=== PATIENT | male | born 1965 | race Caucasian/White ===

== ENCOUNTER 2021-02-05 21:18 | Observation (INO) | payer BC, OTHER ==
[2021-02-05] MEDS ORDERED: MORPHINE 4 MG/ML SYR ONE (22:03)
[2021-02-05] MEDS ORDERED: ONDANSETRON 4 MG/2 ML VIAL ONE (22:03)
[2021-02-05 22:16] LABS: Absolute Lymphocytes (CBC) 1.9 K/uL (0.7-4.9); Hematocrit 44.5 % (39.6-49.0); Lymphocytes % 25.1 % (15.3-44.8); MPV 9.3 fL (7.6-11.3); RBC Red Blood Cell Count 5.29 M/uL (4.33-5.43)
[2021-02-05 22:18] LABS: ALT/SGPT 22 U/L (12-78); AST/SGOT 18 U/L (15-37); Albumin 3.8 g/dL (3.4-5.0); Alkaline Phosphatase 91 U/L (45-117); BUN Blood Urea Nitrogen 21 mg/dL (7-18); Bicarbonate 24 mmol/L (21-32); Bilirubin Direct < 0.1 mg/dL (0-0.2); Bilirubin Total 0.5 mg/dL (0.2-1.0); Glucose Level 216 mg/dL (74-106); Magnesium 1.8 mg/dL (1.8-2.4); NT PRO-BNP 15 pg/mL (<125); Potassium 3.8 mmol/L (3.5-5.1); Protein, Total 7.6 g/dL (6.4-8.2); Sodium Level 139 mmol/L (136-145); Troponin (Emerg Dept Use Only) < 0.02 ng/mL (0.0-0.045)
[2021-02-05 22:27] LABS: Protime INR 0.88
[2021-02-05 23:37] LABS: SARS-COV-2 RT PCR NEGATIVE (NEGATIVE)
--- NOTE | 2021-02-06 00:48 | P.HP ---
Certification for Inpatient Patient admitted to: Observation With expected LOS: <2 Midnights Patient will require the following post-hospital care: None Practitioner: I am a practitioner with admitting privileges, knowledge of patient current condition, hospital course, and medical plan of care. Services: Services provided to patient in accordance with Admission requirements found in Title 42 Section 412.3 of the Code of Federal Regulations Patient History Date of Service: 02/06/21 Primary Care Provider: Dr. Herrera Reason for admission: Chest pain History of Present Illness: 55-year-old male with history of diabetes mellitus type 2, hypothyroidism presented to the emergency department for chest pain. Patient reports that he has had chest pain intermittently since Friday the . Patient was evaluated at another hospital and admitted under observation, had blood work and was discharged with anxiety medication. Patient reports worsening of pain, pain is described as sharp substernal radiating to right arm and jaw with associated nausea. Patient was evaluated in the emergency department labs were significant for glucose 216. CT aorta negative for dissection or pulmonary embolism initial troponin negative EKG unremarkable, ED provider wishes to admit in observation for chest pain. 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 moist/pink, EOMI, Sclerae nonicteric Neck: Supple, 2+ carotid pulse no bruit, No LAD, Without JVD or thyroid abnormality Respiratory: Clear to auscultation bilaterally, Normal air movement Cardiovascular: Regular rate/rhythm, Normal S1 S2 Gastrointestinal: Normal bowel sounds, No tenderness Musculoskeletal: No tenderness Integumentary: No rashes Neurological: Normal gait, Normal speech, Normal strength at 5/5 x4 extr, Normal tone, Normal affect Lymphatics: No axilla or inguinal lymphadenopathy - Studies Laboratory Data (last 24 hrs) 10/25/21 21:40: PT 10.1, INR 0.88 02/05/21 21:40: WBC 7.50, Hgb 15.1, Hct 44.5, Plt Count 214 02/05/21 21:40: Sodium 139, Potassium 3.8, BUN 21 H, Creatinine 1.08, Glucose 216 H, Magnesium 1.8, Total Bilirubin 0.5, AST 18, ALT 22, Alkaline Phosphatase 91 Assessment and Plan - Plan Assessment: Chest pain rule out ACS Diabetes mellitus type 2 with hyperglycemia Hypothyroidism Plan: Chest pain rule out ACS: Trend troponin, monitor on telemetry, cardiology consult in place. Daily aspirin, statin, beta-benjy therapy. Patient reports less stress test approximately 10 years ago, has not had additional work-up. Patient did report that he tested positive for Covid approximately 3 weeks ago. Appreciate further input from cardiology. Diabetes mellitus type 2 with hyperglycemia: [facility] Accu-Chek, sliding scale insulin. Hypothyroidism: Obtain and continue home medication. DVT PPX: Lovenox Code status: Full Discharge Plan: Home Plan to discharge in: 24 Hours - Advance Directives Does patient have a Living Will: No Does patient have a Durable POA for Healthcare: No - Code Status/Comfort Care Code Status Assessed: Yes (Full code) Critical Care: No Time Spent Managing Pts Care (In Minutes): 55
[2021-02-06] MEDS ORDERED: FENTANYL CITR 100 MCG/2 ML ONE (01:15)
[2021-02-06] MEDS ORDERED: NA CHLORIDE 0.9% 500 ML ONE (01:16)
[2021-02-06] MEDS ORDERED: LIDOCAINE VISCOUS 2% SOLN 15 ML UDC ONE (01:16)
[2021-02-06] MEDS ORDERED: KETOROLAC 30 MG/ML INJ ONE (01:16)
[2021-02-06] MEDS ORDERED: MAGNES/ALUMIN/SIMET 30ML UCUP ONE (01:16)
[2021-02-06] MEDS ORDERED: ONDANSETRON 4 MG/2 ML VIAL IV PRN (02:36)
[2021-02-06 04:03] VITALS: BMI 27.4
[2021-02-06 04:15] LABS: Absolute Lymphocytes (CBC) 1.5 K/uL (0.7-4.9); Basophils % 0.9 % (0-1.3); Hematocrit 40.4 % (39.6-49.0); Lymphocytes % 25.8 % (15.3-44.8); MPV 8.6 fL (7.6-11.3); RBC Red Blood Cell Count 4.82 M/uL (4.33-5.43)
[2021-02-06] MEDS: MORPHINE 2 MG/ML SYR IV PRN ×2 (04:25→10:49)
[2021-02-06 04:35] LABS: Albumin 3.5 g/dL (3.4-5.0); Bilirubin Total 0.3 mg/dL (0.2-1.0); Potassium 3.9 mmol/L (3.5-5.1); Protein, Total 6.8 g/dL (6.4-8.2)
[2021-02-06 04:36] LABS: Thyroid Stimulating Hormone 4.6 uIU/mL (0.360-3.740)
[2021-02-06] MEDS ORDERED: METOPROLOL TAR 25 MG TAB PO SCH (06:00)
[2021-02-06] MEDS ORDERED: POTASSIUM 25 MEQ EFFERV TAB PO ONE (06:13)
[2021-02-06] MEDS: INSULIN -REGULAR HUMAN 50 UNIT/0.5 ML ML SQ SCH ×2 (07:30→10:58)
[2021-02-06] MEDS ORDERED: ASPIRIN EC 81 MG TAB PO SCH (09:00)
[2021-02-06] MEDS ORDERED: POTASSIUM CL SA 10 MEQ TAB PO ONE (09:00)
[2021-02-06] MEDS ORDERED: ENOXAPARIN 40 MG/0.4 ML SQ SCH (09:00)
[2021-02-06 09:14] VITALS: O2SAT 95
--- NOTE | 2021-02-06 10:15 | RAD REPORT ---
EXAM DESCRIPTION: CT - Angio Aorta For Dissection - 02/06/2021 6:31 am COMPARISON: None. CLINICAL HISTORY: [facility] MAIN chest pain TECHNIQUE: CTA of the chest, abdomen and pelvis was acquired with IV contrast material. Coronal and sagittal reconstructions were obtained. MIPS reformats are provided. Automated exposure control was u tilized on this examination as a dose lowering technique. FINDINGS: CTA FINDINGS: No dissection or aneurysm. No occlusion or significant stenosis. NONVASCULAR CHEST FINDINGS: Heart and mediastinum: Heart size is normal. No lymphadenopathy. Thyroid gland: Visualized portions are normal. Lungs: Dependent groundglass opacities are noted. Airways: No filling defects. No bronchiectasis. Pleura: No pneumothorax. No significant pleural effusion. Musculoskeletal and soft tissues: Within normal limits for age. NONVASCULAR ABDOMEN & PELVIS FINDINGS: Liver: Normal. Gallbladder and biliary: Cholecystectomy. Unremarkable biliary tree. Pancreas: Normal. Spleen: Normal. Kidneys and adrenal glands: Normal adrenal glands. Surgical clips are noted posterior to the left kid lovely. A small chronic left renal cortical scar is noted. Stomach and Small Bowel: The stomach and small bowel are normal. Urinary bladder: Normal. Prostate/Male Urogenital: Normal. Colon and Appendix: A few colonic diverticula are present. No evidence of appendicitis. Peritoneal cavity: No ascites or free air. Retroperitoneum and lymph nodes: Mesenteric lymph nodes are increased in number but not in size. Ther e is trace mesenteric fat stranding. Musculoskeletal and soft tissues: Soft tissues are unremarkable. No aggressive bone lesions. No com pression fracture. IMPRESSION: CHEST IMPRESSION: Mild groundglass opacities in the lung bases are favored to represent atelectasis. No acute vascular findings of the chest. ABDOMEN AND PELVIS IMPRESSION: Trace mesenteric fat stranding with reactive appearing mesenteric lymph nodes. This is nonspecific bu t could be seen with mild mesenteric panniculitis. Electronically signed by: Ezequiel Priest MD 02/05/2021 11:39 PM CDT Due to temporary technical issues with the PACS/Fluency reporting system, reports are being signed by the in house radiologist without review as a courtesy to ensure prompt reporting. The interpreting r adiologist is fully responsible for the content of the report.
--- NOTE | 2021-02-06 12:10 | EDPHYS ---
Physician Documentation [facility] Name: Silas Ghotra Age: 55 yrs Sex: Male : 1965 Arrival Date: 02/05/2021 Time: 21:22 Bed 4 Private MD: ED Physician James Sunshine HPI: 02/05 21:34 This 55 yrs old Male presents to ER via Ambulatory with complaints of Chest jmm Pain > 30 y/o. 21:34 The patient or guardian reports chest pain that is located primarily in the substernal [facility] area. Onset: gradually, 2 day(s) ago. The pain radiates to Associated signs and symptoms: Pertinent negatives:. 02/06 00:21 The chest pain is described as aching, a pressure, sharp. Duration: The patient or jmm guardian reports a single episode, that is still ongoing. Modifying factors: The symptoms are alleviated by nothing. the symptoms are aggravated by nothing. A 55-year-old male with a history of diabetes mellitus, hypothyroidism that presents emerged part with complaints of substernal chest pain beginning this past Friday. Patient was evaluated at [place] and admitted for repeat troponins. Patient continues to have pain along with some abdominal pain as well.. Historical: - Allergies: 02/05 21:36 NKDA; sj1 - Home Meds: 21:36 Metformin Oral [Active]; sj1 22:20 metformin 500 mg Oral tab [Active]; bs2 - PMHx: 21:36 Diabetes - NIDDM; ED; sj1 22:20 Hypothyroidism; bs2 - PSHx: 21:36 Cholecystectomy; Kidney Stone Removal; sj1 - Immunization history:: Adult Immunizations up to date, Client reports receiving the 2nd dose of the Covid vaccine. - Social history:: Smoking status: Patient denies any tobacco usage or history of. Patient/guardian denies using alcohol, street drugs. ROS: 02/06 00:21 Constitutional: Negative for fever, chills, and weight loss. jmm Cardiovascular: Positive for chest pain. Respiratory: Negative for shortness of breath. Abdomen/GI: Positive for abdominal pain. All other systems are negative. Exam: 00:21 Constitutional: This is a well developed, well nourished patient who is awake, alert, jmm and in no acute distress. Head/Face: atraumatic. Eyes: EOMI, no conjunctival erythema appreciated ENT: Moist Mucus Membranes Neck: Trachea midline, Supple Chest/axilla: Normal chest wall appearance and motion. Cardiovascular: Regular rate and rhythm. No edema appreciated Respiratory: Normal respirations, no respiratory distress appreciated 00:21 Back: Normal ROM Skin: General appearance color normal MS/ Extremity: Moves all extremities, no obvious deformities appreciated, no edema noted to the lower extremities Neuro: Awake and alert, normal gait Psych: Behavior is normal, Mood is normal, Patient is cooperative and pleasant 00:21 Abdomen/GI: Inspection: abdomen appears normal, Bowel sounds: normal, Palpation: soft, mild abdominal tenderness, in the right upper quadrant and left upper quadrant. Vital Signs: 02/05 21:34 BP 127 / 93 RA Sitting (auto/reg); Pulse 107; Resp 20 S; Temp 97.8; Pulse Ox 94% on sj1 R/A; Weight 75.75 kg (R); Height 5 ft. 6 in. (167.64 cm); Pain 8/10; 02/06 02:09 BP 107 / 87; Pulse 95; Resp 16; Temp 98.6; Pulse Ox 96% on R/A; Pain 3/10; bs2 02/05 21:34 Body Mass Index 26.95 (75.75 kg, 167.64 cm) [facility] MDM: 02/05 21:34 Patient medically screened. [facility] 02/06 00:23 Data reviewed: vital signs, nurses notes. ED course: I discussed the patient with Daren Sadler whom accepted the patient to Dr. Osvaldo woo.. 02/05 21:35 Order name: Basic Metabolic Panel [facility] 02/05 21:35 Order name: CBC with Diff [facility] 02/05 21:35 Order name: LFT's [facility] 02/05 21:35 Order name: Magnesium [facility] 02/05 21:35 Order name: NT PRO-BNP [facility] 02/05 21:35 Order name: PT-INR [facility] 02/05 21:35 Order name: Troponin (emerg Dept Use Only) [facility] 02/05 22:01 Order name: Basic Metabolic Panel; Complete Time: 22:30 EDMS 02/05 22:01 Order name: Liver (Hepatic) Function; Complete Time: 22:30 EDMS 02/05 22:01 Order name: Troponin (Emerg Dept Use Only); Complete Time: 22:30 EDNE 02/05 22:02 Order name: NT PRO-BNP; Complete Time: 22:30 [facility] 02/05 22:02 Order name: Magnesium; Complete Time: 22:30 [facility] 02/05 22:02 Order name: CBC with Automated Diff; Complete Time: 22:30 MS 02/05 22:02 Order name: Protime (+INR); Complete Time: 22:30 [facility] 02/05 21:35 Order name: XRAY Chest (1 view) [facility] 02/05 21:35 Order name: EKG; Complete Time: 12:12 [facility] 02/05 21:35 Order name: Cardiac monitoring; Complete Time: 21:44 [facility] 02/05 21:35 Order name: EKG - Nurse/Tech; Complete Time: 21:44 [facility] 02/05 21:35 Order name: IV Saline Lock; Complete Time: 21:44 [facility] 02/05 21:35 Order name: Labs collected and sent; Complete Time: 21:44 [facility] 02/05 21:35 Order name: O2 Per Protocol; Complete Time: 21:44 [facility] 02/05 21:36 Order name: CT Aorta for Dissection [facility] 02/05 22:14 Order name: Angio Aorta For Dissection [facility] 02/05 22:40 Order name: COVID-19 (Coronavirus) Document "Date of Onset" if Symptomatic [facility] 02/05 21:35 Order name: O2 Sat Monitoring; Complete Time: 21:44 jm Administered Medications: 02/05 21:45 Drug: morphine 4 mg Route: IVP; Site: left forearm; bs2 22:19 Follow up: Response: No adverse reaction bs2 02/06 02:08 Follow up: Response: No adverse reaction 2 02/05 21:45 Drug: Zofran (Ondansetron) 4 mg Route: IVP; Site: left forearm; bs2 22:19 Follow up: Response: No adverse reaction bs2 02/06 00:58 Drug: NS 0.9% 500 ml Route: IV; Rate: bolus; Site: left forearm; bs2 02:07 Follow up: IV Status: Completed infusion bs2 00:59 Drug: Ketorolac 30 mg Route: IVP; Site: left forearm; bs2 02:08 Follow up: Response: No adverse reaction bs2 00:59 Drug: GI Cocktail without - (Maalox Suspension 30 ml, Lidocaine Liquid 2 % 15 bs2 ml) Route: PO; 02:07 Follow up: Response: No adverse reaction bs2 02:07 Follow up: Response: No adverse reaction bs2 00:59 Drug: fentaNYL (PF) 50 mcg Route: IVP; Site: left forearm; bs2 02:07 Follow up: Response: No adverse reaction bs2 Disposition: 08:43 Co-signature as Attending Physician, James Sunshine MD I agree with the assessment and yunier plan of care. Disposition Summary: 02/06/21 00:24 Hospitalization Ordered Hospitalization Status: Observation [facility] Provider: Poli Riley Location: Telemetry/MedSurg (observation) jm Condition: Stable jmm Problem: new jmm Symptoms: are unchanged jmm Bed/Room Type: Standard [facility] Room Assignment: 421(02/06/21 01:50) mw Diagnosis - Chest pain, unspecified jmm Forms: - Medication Reconciliation Form jmm - SBAR form [facility] Signatures: Dispatcher [employer] EDEmilia Calvin, RN RN James Bishop MD MD cha Mickail, Joel, PA PA jmm Smith, Bridget RN RN bs2 Ting Valentin RN RN sj1 Corrections: (The following items were deleted from the chart) 01:50 00:24 jmm mw
--- NOTE | 2021-02-06 12:10 | ER ---
Nurse's Notes [facility] Name: Silas Ghotra Age: 55 yrs Sex: Male : 1965 Arrival Date: 02/05/2021 Time: 21:22 Bed 4 Private MD: Diagnosis: Chest pain, unspecified Presentation: 02/05 21:34 Chief complaint: Patient states: Midsternal CP that radiates to upper back, nausea, sj1 left jaw pain, and rt arm pain. Was seen at [facility] ER and was d/c with clonazepam. 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 Coronavirus screen:. Coronavirus screen: Vaccine status: Patient reports receiving the 2nd dose of the covid vaccine. Ebola Screen: No symptoms or risks identified at this time. Initial Sepsis Screen: Does the patient meet any 2 criteria? No. Patient's initial sepsis screen is negative. Does the patient have a suspected source of infection? No. Patient's initial sepsis screen is negative. Risk Assessment: Do you want to hurt yourself or someone else? Patient reports no desire to harm self or others. Onset of symptoms was February 02, 2021. 21:34 Method Of Arrival: Ambulatory [facility] [place] 21:34 Acuity: LAYLA 3 sj1 Triage Assessment: 21:36 General: Appears in no apparent distress. Behavior is calm, cooperative, appropriate sj1 for age. Pain: Complains of pain in chest Pain radiates to back Pain currently is 8 out of 10 on a pain scale. at worst was 10 out of 10 on a pain scale. level that patient reports is acceptable is 0 out of 10 on a pain scale. Quality of pain is described as tightness Pain began 1 hour ago. Is. EENT: No signs and/or symptoms were reported regarding the EENT system. Neuro: Level of Consciousness is awake, alert, obeys commands, Oriented to person, place, time, situation. Cardiovascular: Reports chest pain, Chest pain quality is tightness. Respiratory: No deficits noted. GI: Reports nausea. : No signs and/or symptoms were reported regarding the genitourinary system. Derm: No signs and/or symptoms reported regarding the dermatologic system. Musculoskeletal: Reports pain in back. Historical: - Allergies: 21:36 NKDA; sj1 - Home Meds: 21:36 Metformin Oral [Active]; sj1 22:20 metformin 500 mg Oral tab [Active]; bs2 - PMHx: 21:36 Diabetes - NIDDM; ED; sj1 22:20 Hypothyroidism; bs2 - PSHx: 21:36 Cholecystectomy; Kidney Stone Removal; sj1 - Immunization history:: Adult Immunizations up to date, Client reports receiving the 2nd dose of the Covid vaccine. - Social history:: Smoking status: Patient denies any tobacco usage or history of. Patient/guardian denies using alcohol, street drugs. Screenin:48 Abuse screen: Denies threats or abuse. Denies injuries from another. Nutritional bs2 screening: No deficits noted. Tuberculosis screening: No symptoms or risk factors identified. Fall Risk None identified. Assessment: 21:48 General: Appears in no apparent distress. uncomfortable, slender, well groomed, well bs2 developed, well nourished, Behavior is calm, cooperative, appropriate for age. Pain: Complains of pain in chest Pain radiates to back Pain currently is 8 out of 10 on a pain scale. Pain began 2-3 days ago. Neuro: No deficits noted. Cardiovascular: No deficits noted. Reports chest pain, nausea, Respiratory: No deficits noted. GI: No deficits noted. Vital Signs: 21:34 BP 127 / 93 RA Sitting (auto/reg); Pulse 107; Resp 20 S; Temp 97.8; Pulse Ox 94% on sj1 R/A; Weight 75.75 kg (R); Height 5 ft. 6 in. (167.64 cm); Pain 8/10; 02/06 02:09 BP 107 / 87; Pulse 95; Resp 16; Temp 98.6; Pulse Ox 96% on R/A; Pain 3/10; bs2 02/05 21:34 Body Mass Index 26.95 (75.75 kg, 167.64 cm) 1 ED Course: 02/05 21:22 Patient arrived in ED. sj1 21:26 Sagar Marvin PA is PHCP. [facility] 21:26 James Sunshine MD is Attending Physician. jmm 21:36 Triage completed. sj1 21:36 Arm band placed on. sj1 21:40 Inserted saline lock: 18 gauge in left wrist, using aseptic technique. Blood collected. ds4 21:48 Ayde Martins, RN is Primary Nurse. bs2 21:48 Patient has correct armband on for positive identification. site damage prevention technician on. Pulse bs2 ox on. NIBP on. 21:48 Initial lab(s) drawn, by ED staff, sent to lab. EKG done, by ED staff, COVID swab sent bs2 to lab. Patient maintains SpO2 saturation greater than 95% on room air. 22:19 Protime (+INR) Sent. bs2 22:20 No provider procedures requiring assistance completed. Patient admitted, IV remains in bs2 place. 22:34 Angio Aorta For Dissection In Process Unspecified. EDMS 02/06 00:24 Poli Riley MD is Hospitalizing Provider. yolis Administered Medications: 02/05 21:45 Drug: morphine 4 mg Route: IVP; Site: left forearm; bs2 22:19 Follow up: Response: No adverse reaction bs2 02/06 02:08 Follow up: Response: No adverse reaction bs2 02/05 21:45 Drug: Zofran (Ondansetron) 4 mg Route: IVP; Site: left forearm; bs2 22:19 Follow up: Response: No adverse reaction bs2 02/06 00:58 Drug: NS 0.9% 500 ml Route: IV; Rate: bolus; Site: left forearm; bs2 02:07 Follow up: IV Status: Completed infusion bs2 00:59 Drug: Ketorolac 30 mg Route: IVP; Site: left forearm; bs2 02:08 Follow up: Response: No adverse reaction bs2 00:59 Drug: GI Cocktail without - (Maalox Suspension 30 ml, Lidocaine Liquid 2 % 15 bs2 ml) Route: PO; 02:07 Follow up: Response: No adverse reaction bs2 02:07 Follow up: Response: No adverse reaction bs2 00:59 Drug: fentaNYL (PF) 50 mcg Route: IVP; Site: left forearm; bs2 02:07 Follow up: Response: No adverse reaction bs2 Outcome: 00:24 Decision to Hospitalize by Provider. yolis 02:08 Admitted to Tele accompanied by tech, via wheelchair, room 421. bs2 02:08 Condition: improved 02:08 Instructed on the need for admit. 03:19 Patient left the ED. bs2 Signatures: Dispatcher [employer] EDMS Sagar Marvin PA PA Frederick Genao ds4 Ayde Martins, RN RN bs2 Ting Valentin, RN RN sj1
--- NOTE | 2021-02-06 12:14 | EKG ---
Test Date: 2021-02-05 Test Time: 21:33:19 Operations And Maintenance Manager: SHAHIDA MEASUREMENT RESULTS: Intervals: Rate: 109 NC: 190 QRSD: 78 QT: 328 QTc: 441 Galt: P: 43 NC: 190 QRS: 38 T: 4 INTERPRETIVE STATEMENTS: Sinus tachycardia Possible Left atrial enlargement Borderline ECG Compared to ECG 12/25/2014 02:30:35 Sinus rhythm no longer present Electronically Signed On 02-06-21 12:12:48 CDT by Sebastián Ribeiro
[2021-02-06 12:34] VITALS: BP 119/85; TEMP 98
--- NOTE | 2021-02-06 13:25 | ECHO ---
HEIGHT: 5 ft 6 in WEIGHT: 170 lb 1.6 oz DATE OF STUDY: 02/06/[address]: Sebastián Ribeiro MD 2-DIMENSIONAL: YES M.MODE: YES DOPPLER: YES COLOR FLOW: YES TDS: NO PORTABLE: NO DEFINITY: NO BUBBLE STUDY: NO DIAGNOSIS: CHEST PAIN CARDIAC HISTORY: CATHERIZATION: SURGERY: PROSTHETIC VALVE: PACEMAKER: MEASUREMENTS (cm) DIASTOLIC (NORMALS) SYSTOLIC (NORMALS) IVSd 1.0 (0.6-1.2) LA Diam 2.7 (1.9-4.0) LVEF 58% LVIDd 4.5 (3.5-5.7) LVIDs 3.1 (2.0-3.5) %FS 30% LVPWd 1.0 (0.6-1.2) Ao Diam 2.6 (2.0-3.7) 2 DIMENSIONAL ASSESSMENT: RIGHT ATRIUM: NORMAL LEFT ATRIUM: NORMAL RIGHT VENTRICLE: NORMAL LEFT VENTRICLE: NORMAL TRICUSPID VALVE: NORMAL MITRAL VALVE: MITRAL ANNULAR CALCIFICATION PULMONIC VALVE: NORMAL AORTIC VALVE: SCLEROSIS PERICARDIAL EFFUSION: NONE AORTIC ROOT: NORMAL LEFT VENTRICULAR WALL MOTION: NORMAL DOPPLER/COLOR FLOW: NORMAL COMMENTS: MITRAL ANNULAR CALCIFICATION. NORMAL LEFT VENTRICULAR SIZE AND FUNCTION. AORTIC SCLEROSIS. TECHNOLOGIST: Jovanni JOHNSON
[2021-02-06 15:17] LABS: Urine Appearance CLEAR (Clear); Urine Bilirubin NEGATIVE (Negative); Urine Blood NEGATIVE (Negative); Urine Color YELLOW (Yellow); Urine Glucose 2+ (Negative); Urine Protein NEGATIVE (Negative); Urine Specific Gravity >=1.030 (1.005-1.030)
[2021-02-06 15:18] LABS: Urine Microscopic Reflex NO UMIC
[2021-02-06] MEDS ORDERED: ATORVASTATIN 40 MG TAB PO SCH (21:00)
--- NOTE | 2021-02-11 09:58 | CON ---
Date of Consultation: 02/06/2021 Reason For Consultation: Chest pain. History Of Present Illness: Mr. Ghotra is a 55-year-old with history of diabetes. Does not have any allergies. Takes metformin only. He came in with chest pain that has described as aching pressure, sharp sometimes, not related to food, time of the day, or body position. He denied having any nause a, vomiting, diaphoresis, PND, orthopnea, pedal edema, palpitations, or syncope. Had been evaluated at [facility] before and ruled out, but came back here with similar symptoms. Past Medical History: His other past medical history includes hypothyroidism. Review of Systems: Negative. Social History: Negative. Family History: Negative. Physical Examination: Vital Signs: Stable. Afebrile. HEENT: Negative. Neck: Supple without any bruit, lymphadenopathy, JVD, or thyromegaly. Chest: Clear to auscultation or percussion. Cardiac: Normal. Abdomen: Benign. Extremities: Revealed no clubbing, cyanosis, or edema. Diagnostic Data: All within normal limit. Impression And Plan: Atypical chest pain in a diabetic, certainly could be related to reflux, but I would like him to rule out coronary artery disease. I think he should have an outpatient stress test done after he leaves. Echocardiogram which was done on the day he came in was normal except for camelia e mitral annular calcification and aortic sclerosis. His ejection fraction was 68%. Again, I would continue his present regimen, make sure he is on aspirin. In addition to his metformin, may need camelia e proton pump inhibitor as well, but I will make arrangement for him to have an outpatient stress all t and see what we find then. JAY/MARY Voice ID: [id number] Report ID: [id number]
== END 2021-02-06 14:48 | disposition home or self-care (01) ==
LOC: ER 21:18 → ERHOLD 02-06 01:11 → 4TH 02-06 01:57
PROVIDERS: ADMIT Hospitalist; ATTEND Hospitalist
DX: R07.89 Other chest pain (principal); E11.65 Type 2 diabetes mellitus with hyperglycemia; E03.9 Hypothyroidism, unspecified; Z20.822 Contact with and (suspected) exposure to COVID-19; Z86.16 Personal history of COVID-19; Z90.49 Acquired absence of other specified parts of digestive tract; Z83.3 Family history of diabetes mellitus; Z82.49 Family history of ischemic heart disease and other diseases of the circulatory system; Z80.9 Family history of malignant neoplasm, unspecified
CPT/HCPCS: 96361; 93005; 93306; 85025 ×2; 80048; 36415; 83735; 85610; 80061; 82947 ×2; 80076; 84443; 81003; 84484 ×3; 84439; 80053; 83880; 0240U; 71275; 74175; 96375; 96374; 99285; Q9967; J1650; J3010; J2270 ×3; J7040; J2405; G0378 ×2